=== PATIENT | female | born 1965 | race African-American/Black ===

== ENCOUNTER → 2016-07-26 | Outpatient (CLI) | payer OTHER ==
[~2016-07-26] MED LIST: DEXILANT60 MG PO; FLONASE 0.05%50 MCG NASAL; IBUPROFEN 800800 MG PO; MOBIC7.5 M1 PO; NAPROSYN500 MG PO; NORCO 5-325 TA1 EACH PO; NORFLEX100 MG PO; NORVASC10 MG PO
== END ==
LOC: RAD 03:55
DX: Z12.31 Encounter for screening mammogram for malignant neoplasm of breast (principal)

== ENCOUNTER 2016-12-02 12:29 | Emergency (ER) | payer OTHER ==
[~2016-12-02] VITALS: Ht 160 cm; Wt 120.2 kg
--- NOTE | ~2016-12-02 | EKG ---
[place] [address] [facility] [place] [address] ELECTROCARDIOGRAM REPORT Name: CEDRIC BURNS Room #: DEN[place] SPRINGSBridger#: [id number] Admission: 12/02/16 Attend Phys: Discharge: 12/02/16 Date of : 69 Report #: [id number] THIS REPORT FOR: //name// [facility] ED Test Date: 2016-12-02 Test Time: 13:39:31 Pat Name: CEDRIC BURNS Department: Room: Gender: F Certified Pedorthotist: [id number] : 1965 Requested By: Jordan Winston Order Number: [id number] MD: Devin Main Measurements Intervals [place] Rate: 83 P: 37 DC: 190 QRS: 16 QRSD: 92 T: -2 QT: 362 QTc: 426 Interpretive Statements Sinus rhythm Borderline T abnormalities Compared to ECG 02/01/2016 13:40:32 No significant changes Electronically Signed On 12-03-2016 7:55:54 CDT by Devin Main [email or web address] <ELECTRONICALLY SIGNED> By: Devin Main MD, [facility] 12/03/16 [id number] Devin Main MD, FACC /EPI
[2016-12-02] MEDS ORDERED: TOPAMAX 100 MG100 MG PO (12:33)
[2016-12-02] MEDS ORDERED: OMEPRAZOLE40 MG PO (12:33)
[2016-12-02 13:35] LABS: HEMATOCRIT 37.1 % (37.0-47.0); HEMOGLOBIN 11.8 gm/dL (12.0-15.0); MCH 22.1 pg (26.0-34.0); MCHC 31.9 g/dL (28.0-37.0); MCV 69.4 fL (80.0-100.0); RBC 5.34 mil/uL (4.20-5.00); RDW 16.2 % (10.5-14.5); WBC 6.8 thou/uL (4.0-11.0)
[2016-12-02 13:44] LABS: CALCIUM 9.1 mg/dL (8.5-10.1); CREATININE 0.8 mg/dL (0.6-1.0); POTASSIUM 3.4 mmol/L (3.5-5.1)
[2016-12-02 13:50] LABS: ALBUMIN 3.3 g/dL (3.4-5.0); TOTAL BILIRUBIN 0.4 mg/dL (<0.1-1.0)
[2016-12-02] MEDS ORDERED: CARAFATE 1 GM TA1 G1 PO (14:41)
== END 2016-12-02 14:56 | disposition home or self-care (01) ==
LOC: ER 12:29
PROVIDERS: Emergency Medicine
DX: R10.13 Epigastric pain (principal); I10 Essential (primary) hypertension; K21.9 Gastro-esophageal reflux disease without esophagitis; Z98.51 Tubal ligation status; Z88.8 Allergy status to other drugs, medicaments and biological substances

== ENCOUNTER 2017-05-25 18:24 | Emergency (ER) | payer OTHER ==
[~2017-05-25] VITALS: Ht 162.6 cm; Wt 117.9 kg
--- NOTE | ~2017-05-25 | EKG ---
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: MCLEAN : 1965 Requested By: Nette Dawson Order Number: [id number] MD: El Boyer Measurements Intervals [place] Rate: 96 P: 42 WV: 177 QRS: 9 QRSD: 91 T: 7 QT: 338 QTc: 428 Interpretive Statements Sinus rhythm Left ventricular hypertrophy Compared to ECG 12/02/2016 13:39:31 Left ventricular hypertrophy now present T-wave abnormality no longer present Electronically Signed On 05-26-2017 10:23:22 [employer] by El Boyer [email or web address] <ELECTRONICALLY SIGNED> By: El Boyer MD 05/26/17 1023 D: [id number] 27 El Boyer MD /KENNEDY
[~2017-05-25 18:24] MED LIST changes: +CARAFATE 1 GM TA1 G1 PO; +OMEPRAZOLE40 MG PO; +TOPAMAX 100 MG100 MG PO
[2017-05-25 19:08] LABS: ABSOLUTE NEUTROPHILS 4.2 thou/uL (1.4-8.2); BASOPHILS 0.8 % (0.0-2.0); EOSINOPHILS 1.6 % (0.0-3.0); HEMATOCRIT 33.3 % (37.0-47.0); HEMOGLOBIN 10.8 gm/dL (12.0-15.0); LYMPHOCYTES 39.5 % (24.0-44.0); MCH 21.7 pg (26.0-34.0); MCHC 32.6 g/dL (28.0-37.0); MCV 66.6 fL (80.0-100.0); MONOCYTES 6.7 % (1.0-8.0); PLATELET COUNT 396 thou/uL (150-400); POLYS 51.4 % (36.0-66.0); RDW 16.5 % (10.5-14.5); WBC 8.2 thou/uL (4.0-11.0)
[2017-05-25 19:19] LABS: ANION GAP 7 mmol/L (7-16); BUN 13 mg/dL (7-18); CALCIUM 9.5 mg/dL (8.5-10.1); CHLORIDE 105 mmol/L (98-107); CO2 28 mmol/L (21-32); CREATININE 0.8 mg/dL (0.6-1.0); GLUCOSE 91 mg/dL (74-106); POTASSIUM 3.7 mmol/L (3.5-5.1); SODIUM 140 mmol/L (136-145)
[2017-05-25 19:27] LABS: TROPONIN-I < 0.04 ng/mL (<0.06)
[2017-05-25 19:36] LABS: ANISOCYTOSIS 1+; MICROCYTES 1+
[2017-05-25 21:05] VITALS: BP 148/76
[2017-05-25] MEDS ORDERED: FLEXERIL PO (21:32)
[2017-05-25] MEDS ORDERED: IBUPROFEN 800800 MG PO (21:32)
== END 2017-05-25 21:49 | disposition home or self-care (01) ==
LOC: ER 18:24
PROVIDERS: Nurse Practitioner Family
DX: R07.89 Other chest pain (principal); I10 Essential (primary) hypertension; K21.9 Gastro-esophageal reflux disease without esophagitis; Z88.6 Allergy status to analgesic agent

== ENCOUNTER 2017-06-26 02:08 | Emergency (ER) | payer OTHER ==
[~2017-06-26] VITALS: Ht 154.9 cm; Wt 120.2 kg
--- NOTE | ~2017-06-26 | EKG ---
[address] [address] ELECTROCARDIOGRAM REPORT Name: CEDRIC BURNS [facility] [id number] Admission: 06/26/17 Attend Phys: Discharge: 06/26/17 Date of : 69 Report #: [id number] THIS REPORT FOR: //name// [facility] ED Test Date: 2017-06-26 Test Time: 02:20:25 Pat Name: CEDRIC BURNS Department: Room: Gender: F Atmospheric Chemist: KACIE : 1965 Requested By: Alisha Mcnair Order Number: [id number] MD: El Boyer Measurements Intervals [place] Rate: 96 P: 45 [place]: 188 QRS: 18 QRSD: 96 T: 3 QT: 351 QTc: 444 Interpretive Statements Sinus rhythm Compared to ECG 05/25/2017 18:28:44 Left ventricular hypertrophy no longer present Electronically Signed On 06-26-2017 8:01:19 CDT by El Boyer [email or web address] <ELECTRONICALLY SIGNED> By: El Boyer MD 06/26/17 08 9 9 El Boyer MD /KENNEDY
[~2017-06-26 02:08] MED LIST changes: +FLEXERIL PO
[2017-06-26 02:51] LABS: ABSOLUTE NEUTROPHILS 3.1 thou/uL (1.4-8.2); BASOPHILS 0.6 % (0.0-2.0); EOSINOPHILS 2.5 % (0.0-3.0); HEMATOCRIT 33.6 % (37.0-47.0); HEMOGLOBIN 10.8 gm/dL (12.0-15.0); LYMPHOCYTES 40.6 % (24.0-44.0); MCH 21.7 pg (26.0-34.0); MCHC 32.1 g/dL (28.0-37.0); MCV 67.7 fL (80.0-100.0); MONOCYTES 6.1 % (1.0-8.0); PLATELET COUNT 375 thou/uL (150-400); POLYS 50.2 % (36.0-66.0); RBC 4.97 mil/uL (4.20-5.00); RDW 17.6 % (10.5-14.5); WBC 6.2 thou/uL (4.0-11.0)
[2017-06-26 04:00] LABS: ANION GAP 8 mmol/L (7-16); BUN 11 mg/dL (7-18); CALCIUM 8.8 mg/dL (8.5-10.1); CHLORIDE 105 mmol/L (98-107); CO2 26 mmol/L (21-32); CREATININE 0.8 mg/dL (0.6-1.0); GLUCOSE 105 mg/dL (74-106); POTASSIUM 3.4 mmol/L (3.5-5.1); SODIUM 139 mmol/L (136-145)
[2017-06-26 04:09] LABS: TROPONIN-I < 0.04 ng/mL (<0.06)
== END 2017-06-26 06:40 | disposition home or self-care (01) ==
LOC: ER 02:08
PROVIDERS: Emergency Medicine
DX: R07.9 Chest pain, unspecified (principal); R51 Headache; I10 Essential (primary) hypertension; K21.9 Gastro-esophageal reflux disease without esophagitis

== ENCOUNTER → 2018-06-26 | Outpatient (CLI) | payer OTHER | LOC: RAD 09:45 | DX: Z12.31 Encounter for screening mammogram for malignant neoplasm of breast (principal) ==

== ENCOUNTER → 2019-10-26 | Outpatient (CLI) | payer OTHER | LOC: RAD 10:22 | PROVIDERS: ATTEND Obstetrics & Gynecology | DX: Z12.31 Encounter for screening mammogram for malignant neoplasm of breast (principal) ==

== ENCOUNTER → 2020-11-09 | Outpatient (CLI) | payer OTHER | LOC: BC 08:09 | PROVIDERS: ATTEND Obstetrics & Gynecology | DX: Z12.31 Encounter for screening mammogram for malignant neoplasm of breast (principal); N64.89 Other specified disorders of breast ==